=== PATIENT | female | born 1940 | race Caucasian/White ===

== ENCOUNTER 2018-01-05 09:34 | Inpatient (IN) | payer OTHER ==
[2018-01-03 09:28] VITALS: BMI 37.1
[2018-01-05] MEDS ORDERED: TRANEXAMIC ACID 1000 MG/10 ML VIAL ONE ×2 (11:18→15:13)
[2018-01-05] MEDS ORDERED: DEXAMETHASONE SOD PHOSPHATE 4 MG/1 ML VIAL ONE (11:18)
[2018-01-05] MEDS ORDERED: VANCOMYCIN 1,000 MG VIAL (RESTRICTED TO ID ONLY) ONE (11:18)
[2018-01-05] MEDS ORDERED: ceFAZolin SODIUM 1 GM VIAL ONE ×2 (11:18→15:12)
[2018-01-05] MEDS ORDERED: ONDANSETRON 4 MG/2 ML VIAL ONE (11:18)
[2018-01-05] MEDS ORDERED: BUPIVACAINE LIPOSOME/PF (EXPAREL) 266 MG/20 ML VIAL ONE (12:08)
[2018-01-05] MEDS ORDERED: MIDAZOLAM HCL 2 MG/2 ML SINGLE DOSE VIAL ONE ×2 (12:08→13:04)
[2018-01-05] MEDS ORDERED: VANCOMYCIN 1,000 MG in DEXTROSE 5%-WATER - 250 ML IVPB ONE (12:32)
[2018-01-05] MEDS ORDERED: TRANEXAMIC ACID 1000 MG/10 ML VIAL IVPUSH ONE (12:32)
[2018-01-05] MEDS ORDERED: CEFAZOLIN 2 GM in DEXTROSE 5%-WATER - 50 ML IVPB ONE (12:32)
[2018-01-05] MEDS ORDERED: ONDANSETRON 4 MG/2 ML VIAL IVPUSH PRN ×2 (14:29→15:13)
[2018-01-05] MEDS ORDERED: ACETAMINOPHEN 325 MG TABLET (FP) PO SCH (14:30)
[2018-01-05] MEDS ORDERED: oxyCODONE HCL 5 MG TABLET PO PRN (14:30)
[2018-01-05] MEDS ORDERED: BENZOIN/ALOE VERA/STORAX/TOLU 58 ML BOTTLE ONE (14:55)
[2018-01-05] MEDS ORDERED: MAG HYDROX/AL HYDROX/SIMETH 30 ML UNIT-DOSE CUP PO PRN (15:13)
[2018-01-05] MEDS ORDERED: MAGNESIUM HYDROX 2400MG/30ML ORAL SUSPENSION 30 ML CUP PO PRN (15:13)
[2018-01-05] MEDS ORDERED: LACTATED RINGERS SOLUTION 1,000 ML IV SCH (15:15)
--- NOTE | 2018-01-05 15:18 | PN ---
Progress Note (short form) - Note Progress Note: 77F s/p right total knee replacement POD #0. -Pain control. -DVT PPx: -Chemical: ASA 325mg PO BID x 6 weeks. -Mechanical: MARGARETH's, SCD's. -Incentive spirometry. -PT/OT/Rehab, OOB. -WBAT RLE. -Antibiotics: Ancef x 2 post op doses. -f/u post-op trial of void. -Diet as tolerated. -Keep dressing clean & dry. -Care per medical hospitalist team. -f/u [facility] [place] office 01/13/2018; call for appointment; . -Will follow. Fortino Tran MD (Orthopaedic Surgery).
--- NOTE | 2018-01-05 15:22 | OP ---
Operative Note - Note: Operative Date: 01/05/18 Pre-Operative Diagnosis: Right knee DJD Operation: Right total knee replacement Implants: Cristal Triathlon. Femur - 5. Tibia - 6. Poly - 9mm, TS. Patella - 27mm, symmetric Post-Operative Diagnosis: Same as Pre-op Surgeon: Fortino Tran Mammographer: Siddhartha Tran Anesthesiologist/DEMOLITION SPECIALIST: Veda Choudhary Anesthesia: Spinal Specimens Removed: Bone, soft tissue Estimated Blood Loss (mls): 0 Drains & Tubes with Location: 1 x deep HemoVac drain Fluid Volume Replaced (mls): 800 Operative Report Dictated: Yes
[2018-01-05] MEDS ORDERED: ACETAMINOPHEN 325 MG TABLET (FP) ONE (15:50)
[2018-01-05] MEDS ORDERED: oxyCODONE HCL 5 MG TABLET ONE (16:38)
[2018-01-05] MEDS ORDERED: oxyCODONE HCL 5 MG TABLET PO ONE (16:40)
[2018-01-05] MEDS ORDERED: CEFAZOLIN 2 GM/D5W 2 GM/50 ML ML IVPB SCH (18:00)
[2018-01-05] MEDS: oxyCODONE HCL 5 MG TABLET PO PRN (19:30)
[2018-01-05] MEDS: ASPIRIN 325 MG TABLET PO SCH (21:37)
[2018-01-05] MEDS: SENNOSIDES/DOCUSATE COMBO (SENNA PLUS) TABLET (UD) PO SCH (21:37)
[2018-01-05] MEDS: oxyCODONE HCL 10 MG SUSTAINED ACTING TABLET PO SCH (21:37)
[2018-01-05] MEDS: ACETAMINOPHEN 325 MG TABLET (FP) PO SCH (21:37)
[2018-01-05] MEDS: ZINC OXIDE 20% TOPICAL OINTMENT 30 GM TUBE TP SCH (21:38)
[2018-01-05] MEDS: CEFAZOLIN 2 GM/D5W 2 GM/50 ML ML IVPB SCH (21:38)
[2018-01-06] MEDS: oxyCODONE HCL 5 MG TABLET PO PRN ×3 (02:42→16:51)
[2018-01-06] MEDS: ACETAMINOPHEN 325 MG TABLET (FP) PO SCH ×4 (04:00→21:17)
[2018-01-06] MEDS: CEFAZOLIN 2 GM/D5W 2 GM/50 ML ML IVPB SCH (06:37)
--- NOTE | 2018-01-06 07:52 | CONSULT ---
Consultation: REQUESTING PROVIDER: Dr fonseca CONSULT REQUEST: We have been asked to medically evaluate this patient for medical management. HISTORY OF PRESENT ILLNESS: patient is a 77-year-old obese female, with a past medical history of osteoarthritis and hypertension, patient is s/p right total knee replacement, 01/05/2018 spinal anesthesia, Dr. Fonseca. REVIEW OF SYSTEMS: CONSTITUTIONAL: Absent: fever, chills, diaphoresis, generalized weakness, malaise, loss of appetite, weight change HEENT: Absent: rhinorrhea, nasal congestion, throat pain, throat swelling, difficulty swallowing, mouth swelling, ear pain, eye pain, visual changes CARDIOVASCULAR: Absent: chest pain, syncope, palpitations, irregular heart rate, lightheadedness , peripheral edema RESPIRATORY: Absent: cough, shortness of breath, dyspnea with exertion, orthopnea, wheezing, stridor, hemoptysis GASTROINTESTINAL: Absent: abdominal pain, abdominal distension, nausea, vomiting, diarrhea, constipation, melena, hematochezia GENITOURINARY: Absent: dysuria, frequency, urgency, hesitancy, hematuria, flank pain, genital pain MUSCULOSKELETAL: present: right knee pain Absent: myalgia, arthralgia, joint swelling, back pain, neck pain SKIN: Absent: rash, itching, pallor HEMATOLOGIC/IMMUNOLOGIC: Absent: easy bleeding, easy bruising, lymphadenopathy, frequent infections ENDOCRINE: Absent: unexplained weight gain, unexplained weight loss, heat intolerance, cold intolerance NEUROLOGIC: Absent: headache, focal weakness or paresthesias, dizziness, unsteady gait, seizure, mental status changes, bladder or bowel incontinence PSYCHIATRIC: Absent: anxiety, depression, suicidal or homicidal ideation, hallucinations. PHYSICAL EXAMINATION Vital Signs - 24 hr 01/05/18 01/05/18 01/05/18 10:04 10:15 10:19 Temperature 97.7 F 97.7 F Pulse Rate 65 65 Respiratory 20 20 Rate Blood Pressure 149/70 149/70 O2 Sat by Pulse 97 Oximetry (%) 01/05/18 01/05/18 01/05/18 11:27 15:35 15:40 Temperature 97.6 F Pulse Rate 55 L 54 L Respiratory 20 18 16 Rate Blood Pressure 106/57 105/83 O2 Sat by Pulse 97 97 96 Oximetry (%) 01/05/18 01/05/18 01/05/18 15:45 15:50 16:10 Temperature Pulse Rate 55 L 53 L 55 L Respiratory 16 14 15 Rate Blood Pressure 108/56 114/56 115/53 O2 Sat by Pulse 99 100 100 Oximetry (%) 01/05/18 01/05/18 01/05/18 16:25 16:35 16:55 Temperature Pulse Rate 56 L 55 L 54 L Respiratory 15 18 18 Rate Blood Pressure 106/53 113/45 101/48 O2 Sat by Pulse 100 99 98 Oximetry (%) 01/05/18 01/05/18 01/05/18 17:10 17:30 17:50 Temperature 97.6 F 97.6 F Pulse Rate 58 L 55 L 55 L Respiratory 18 19 19 Rate Blood Pressure 108/64 110/56 114/58 O2 Sat by Pulse 99 Oximetry (%) 01/05/18 01/05/18 01/06/18 21:00 21:45 06:14 Temperature 97.9 F 98.3 F Pulse Rate 82 90 Respiratory 19 19 20 Rate Blood Pressure 116/65 124/65 O2 Sat by Pulse 94 L 95 Oximetry (%) GENERAL: Awake, alert, and fully oriented, in no acute distress. HEAD: Normal with no signs of trauma. EYES: Pupils equal, round and reactive to light, extraocular movements intact, sclera anicteric, conjunctiva clear. No lid lag. EARS, NOSE, THROAT: Ears normal, nares patent, oropharynx clear without exudates. Moist mucous membranes. NECK: Normal range of motion, supple without lymphadenopathy, JVD, or masses. LUNGS: Breath sounds equal, clear to auscultation bilaterally. No wheezes, and no crackles. No accessory muscle use. HEART: Regular rate and rhythm, normal S1 and S2 without murmur, rub or gallop. ABDOMEN: Soft, nontender, not distended, normoactive bowel sounds, no guarding, no rebound, no masses. No hepatomegaly or splenomegaly. MUSCULOSKELETAL: Normal range of motion at all joints. No bony deformities or tenderness. No CVA tenderness. UPPER EXTREMITIES: 2+ pulses, warm, well-perfused. No cyanosis. No clubbing. Cap refill <2 seconds. No peripheral edema. LOWER EXTREMITIES: 2+ pulses, warm, well-perfused. No calf tenderness. No peripheral edema. RIGHT LOWER EXTREMITY: SCDs/Payam, dressing CDI, Hemovac drain noted sanguinous scant drainage noted, less than 3 second capillary refill, +3 pedal pulse NEUROLOGICAL: Cranial nerves II-XII intact. Normal speech. Normal gait. PSYCHIATRIC: Cooperative. Good eye contact. Appropriate mood and affect. SKIN: Warm, dry, normal turgor, no rashes or lesions noted. Active Medications Generic Name Dose Route Start Last Admin Trade Name Freq PRN Reason Stop Dose Admin Acetaminophen 650 mg 01/05/18 22:00 01/06/18 04:00 Tylenol - PO 650 mg Q6H BHAVIN Administration Al Hydroxide/Mg Hydroxide 30 ml 01/05/18 15:13 Mylanta Oral Suspension - PO Q4H PRN DYSPEPSIA Aspirin 325 mg 01/05/18 22:00 01/05/18 21:37 Asa - PO 325 mg BID [facility] Administration Celecoxib 200 mg 01/06/18 10:00 Celebrex - PO DAILY [facility] Hydrochlorothiazide 12.5 mg 01/06/18 10:00 Hctz - PO DAILY [facility] Lactated Ringer's 1,000 mls @ 125 mls/hr 01/05/18 14:30 Lactated Ringers Solution IV ASDIR BHAVIN Magnesium Hydroxide 30 ml 01/05/18 15:13 Milk Of Magnesia - PO PRN PRN CONSTIPATION Multi-Ingredient Ointment 1 applic 01/05/18 22:00 01/05/18 21:38 Zinc Oxide TP 1 applic BID [facility] Administration Multivitamins/Minerals/Vitamin C 1 tab 01/06/18 10:00 Tab-A-Vit - PO DAILY [facility] Ondansetron HCl 4 mg 01/05/18 15:13 Zofran Injection IVPUSH Q6H PRN NAUSEA Oxycodone HCl 5 mg 01/05/18 14:30 Roxicodone - PO Q3H PRN PAIN LEVEL 1-5 Oxycodone HCl 10 mg 01/05/18 14:30 01/06/18 05:45 Roxicodone - PO 10 mg Q3H PRN Administration PAIN LEVEL 6-10 Oxycodone HCl 10 mg 01/05/18 22:00 01/05/18 21:37 Oxycontin - PO 01/08/18 14:30 10 mg BID [facility]AVIN Administration Pantoprazole Sodium 40 mg 01/06/18 10:00 Protonix - PO DAILY [facility] Senna/Docusate Sodium 2 tablet 01/05/18 22:00 01/05/18 21:37 Pericolace - PO 2 tablet BID [facility] Administration Solifenacin 10 mg 01/06/18 10:00 Vesicare - PO DAILY [facility]AV[facility] ASSESSMENT/PLAN: 1) MS S/P right total knee replacement - When necessary pain medication - Physical therapy as per the orthopedist - Monitor hemoglobin repeat hemoglobin this morning 10.1 stable 2) cardiovascular hypertension - continue hydrochlorothiazide blood pressure at goal Dispo: We will continue to follow the patient. Thank you for this consultative opportunity. .
--- NOTE | 2018-01-06 08:48 | OP ---
DATE OF OPERATION: 01/05/2018 SURGEON: Fortino Tran M.D. EYE SURGEON: Siddhartha Tran M.D., Jace Stewart PREOPERATIVE DIAGNOSIS: Severe fixed valgus, fixed flexed tricompartmental osteoarthritis, right knee. POSTOPERATIVE DIAGNOSIS: Severe fixed valgus, fixed flexed tricompartmental osteoarthritis, right knee. OPERATION PERFORMED: 1. A right posterior stabilized total knee arthroplasty ([employer]). 2. Lateral release. ANESTHESIA: Spinal epidural with a peripheral block. OPERATION DETAILS: The patient was correctly identified and brought into the operating room. A timeout was called. Imaging was available for intraoperative evaluation. A midline incision was utilized. The quadriceps tendon was incised longitudinally. A medial parapatellar incision was made to the medial aspect of the tibial tubercle. This brought about easy capsulation of the patella after manipulating it carefully, appropriately. A severely marked degree of osteoarthritis was encountered. The patella was cut free handed from patella to quadriceps tendon. The patellar jig measured size 27 and the lugholes drilled appropriately. After extensive medial as well as lateral dissection around the top of the proximal end of the tibia, with external rotation, the tibia was subluxed forward. The tibial cut was made with extramedullary alignment about a centimeter below the actual joint line, so severe was the abnormality of the tibia. The tibial baseplate measured size 6. The femoral bone bed itself was prepared with the appropriate jig system from [employer]. This was a Triathlon posterior stabilized size 5 femoral component which was, after the bone cut, seated accurately onto the distal end of the femur. The tibial component was a size 6 baseplate with a 12 x 50 stem. On trialing, ultimately utilized was a 6- x 9-mm TS polyethylene. An extensive synovectomy was performed throughout this because of the marked degree of synovitis. The three cuts, after having been made with the appropriate jig system, brought the knee into anatomical alignment. The joint line was proximalized about 2 mm. The flexion and extension gaps were even and equal. The menisci were resected. The tibial preparation was cut to 90 degrees to the actual tibial medullary alignment. The femur was cut to 4 degrees of valgus, 3 degrees of external rotation, and the joint line was proximalized by 2 mm. Trialing brought about excellent realignment and this was accepted. Once all bone cuts had been made and the trialing components, we were satisfied with the alignment of them and full extension achieved, and stability in both flexion and extension, the cementing of all components was in one stage. Once again, a size 5 Triathlon posterior stabilized femoral component and a size 6 universal baseplate with a 12 x 50 stem cemented into position using appropriate vacuum-mixed cement and removing all extraneous cement once it had been seated. The patella was cemented in position as well. On the table, the limb previously aligned into an anatomic position from severe valgus, the fixed flexion deformity was dispensed with, and the knee brought into full extension. The flexion was limited by the thickness of the soft issues blocking the calf from sweeping through this because of the thickness and largeness of the thigh tissue. In order to achieve greater patellar tracking after lateral release and an extensive synovectomy performed throughout once the bone cuts and cementing of the components had been inserted , this to ensure that there was no remaining diseased tissue. Closure: fascia 1 Vicryl, subcutaneous 1 and 2-0 Vicryl, skin kaylen, with nylon sutures proximally and distally on the skin wound itself. Overall comment: This was an extremely difficult and severely deformed knee with severe osteoarthritis. Operation went well. The contralateral knee will be done in about 2-3 months. MD RO Huggins/[id number] MTDD
[2018-01-06 08:53] LABS: ANION GAP 8 (8-16); BLOOD UREA NITROGEN 14 mg/dl (7-18); CALCIUM 8.4 mg/dl (8.4-10.2); CHLORIDE 101 mmol/L (98-107); CO2 26 mmol/L (22-28); CREATININE 0.6 mg/dl (0.6-1.3); GLUCOSE,RANDOM 112 mg/dl (74-106); POTASSIUM 4.1 mmol/L (3.5-5.1); SODIUM 135 mmol/L (136-145)
[2018-01-06] MEDS: HYDROCHLOROTHIAZIDE 12.5 MG CAPSULE (FP) PO SCH (09:13)
[2018-01-06] MEDS: CELECOXIB 200 MG CAPSULE PO SCH (09:13)
[2018-01-06] MEDS: PANTOPRAZOLE 40 MG TABLET (FP) PO SCH (09:13)
[2018-01-06] MEDS: ASPIRIN 325 MG TABLET PO SCH ×2 (09:13→21:18)
[2018-01-06] MEDS: SENNOSIDES/DOCUSATE COMBO (SENNA PLUS) TABLET (UD) PO SCH ×2 (09:14→21:18)
[2018-01-06] MEDS: MULTIVITAMINS (DAILY MVI) TABLET (FP) PO SCH (09:14)
[2018-01-06] MEDS: SOLIFENACIN SUCCINATE 5 MG TAB (FP) PO SCH (09:14)
[2018-01-06] MEDS: oxyCODONE HCL 10 MG SUSTAINED ACTING TABLET PO SCH ×2 (09:15→21:28)
[2018-01-06] MEDS: ZINC OXIDE 20% TOPICAL OINTMENT 30 GM TUBE TP SCH ×2 (09:18→22:24)
[2018-01-06 09:45] LABS: MEAN PLT VOLUME 9.1 fl (7.5-11.1); WHITE BLOOD COUNT 9.1 K/mm3 (4.0-10.0)
[2018-01-06 09:48] LABS: HEMOGLOBIN 10.1 GM/dL (10.7-15.3); MCH 20.7 pg (25.7-33.7); MCHC 32.5 g/dl (32.0-36.0); MEAN CELL VOLUME 63.7 fl (80-96); PLATELET COUNT 249 K/MM3 (134-434); RBC 4.86 M/mm3 (3.60-5.2); RDW 15.3 % (11.6-15.6)
--- NOTE | 2018-01-06 15:07 | PN ---
Progress Note (short form) - Note Progress Note: 77F POD1 s/p R TKR under spinal anesthetic with peripheral nerve blocks. Pt states that pain is well controlled and reports no anesthetic complications. AVSS. Motor and sensory function intact in bilateral lower extremities. Continue current regimen.
[2018-01-06] MEDS: LACTATED RINGERS SOLUTION 1,000 ML IV SCH (15:42)
[2018-01-07] MEDS: ACETAMINOPHEN 325 MG TABLET (FP) PO SCH ×2 (05:01→10:43)
[2018-01-07 08:32] LABS: HEMATOCRIT 31.4 % (32.4-45.2); HEMOGLOBIN 9.5 GM/dl (10.7-15.3); MCH 20.4 pg (25.7-33.7); MCHC 30.3 g/dl (32.0-36.0); MEAN CELL VOLUME 67.3 fl (80-96); MEAN PLT VOLUME 9.1 fl (7.5-11.1); PLATELET COUNT 259 K/MM3 (134-434); RBC 4.66 M/mm3 (3.60-5.2); RDW 14.6 % (11.6-15.6); WHITE BLOOD COUNT 10.9 K/mm3 (4.0-10.8)
[2018-01-07] MEDS ORDERED: PT OWN MED DRAWER 7, Y5N ONE (10:32)
[2018-01-07] MEDS: ASPIRIN 325 MG TABLET PO SCH (10:42)
[2018-01-07] MEDS: SENNOSIDES/DOCUSATE COMBO (SENNA PLUS) TABLET (UD) PO SCH (10:43)
[2018-01-07] MEDS: MULTIVITAMINS (DAILY MVI) TABLET (FP) PO SCH (10:43)
[2018-01-07] MEDS: SOLIFENACIN SUCCINATE 5 MG TAB (FP) PO SCH (10:44)
[2018-01-07] MEDS: PANTOPRAZOLE 40 MG TABLET (FP) PO SCH (10:44)
[2018-01-07] MEDS: CELECOXIB 200 MG CAPSULE PO SCH (10:44)
[2018-01-07] MEDS: HYDROCHLOROTHIAZIDE 12.5 MG CAPSULE (FP) PO SCH (10:44)
[2018-01-07] MEDS: oxyCODONE HCL 10 MG SUSTAINED ACTING TABLET PO SCH (10:44)
[2018-01-07] MEDS: ZINC OXIDE 20% TOPICAL OINTMENT 30 GM TUBE TP SCH (10:45)
--- NOTE | 2018-01-07 13:02 | PATH ---
Surgical Pathology Report Patient Name: MARSHA VALDES Med. Rec. #: [id number] /Age/Gender: 1940 (Age: 77) / F Account: [id number] [facility] Taken: 01/05/2018 Received: 01/05/2018 Reported: 01/07/2018 Physicians: Fortino Tran M.D. Specimen(s) Received BONE RIGHT KNEE Clinical History Right knee osteoarthritis Final Diagnosis KNEE BONE, RIGHT, TOTAL KNEE REPLACEMENT: DEGENERATIVE JOINT DISEASE. Electronically Signed Veronica Adair M.D. Gross Description Received in formalin labeled "bone right knee," is a 12.5 x 11.5 x 2.8 cm aggregate of new portions of bone and soft tissue. The tibial plateau measures 8.3 x 6.7 x 1.6 cm. There are multiple areas of eburnation present, measuring up to 3.1 cm in greatest dimension. The remaining articular surfaces are new-yellow and diffusely nodular and granular. The underlying trabecular bone is yellow and hard. Workers' Compensation Mediator sections are submitted in one cassette, following decalcification. 01/06/2018 saudi01/06/2018
[2018-01-07 14:09] VITALS: BP 99/54; PULSE 83; TEMP 98.8
== END 2018-01-07 14:30 | DRG 470 ==
LOC: FM/S 09:34
PROVIDERS: ADMIT Orthopaedic Surgery Orthopaedic Surgery of the Spine; ATTEND Orthopaedic Surgery Orthopaedic Surgery of the Spine
PROC: 0SRC0J9 Replacement of Right Knee Joint with Synthetic Substitute, Cemented, Open Approach (ICD-10-PCS; principal; 2018-01-05 13:35)
DX: M17.11 Unilateral primary osteoarthritis, right knee (principal); I10 Essential (primary) hypertension; D64.9 Anemia, unspecified; K21.9 Gastro-esophageal reflux disease without esophagitis; I73.9 Peripheral vascular disease, unspecified
CPT/HCPCS: 36415; 73560-TC-RT-FY; 80048; 85027; 88304-TC; 88311-TC; 94760; 97116-GP; 97162-GP

== ENCOUNTER 2018-05-04 06:39 | Inpatient (IN) | payer OTHER ==
[2018-04-18 13:26] VITALS: BMI 34.8
[2018-05-04] MEDS ORDERED: CEFAZOLIN 2 GM in DEXTROSE 5%-WATER - 50 ML IVPB ONE (06:58)
[2018-05-04] MEDS ORDERED: VANCOMYCIN 1,500 MG in DEXTROSE 5%-WATER - 250 ML IVPB ONE (06:58)
[2018-05-04] MEDS ORDERED: ceFAZolin SODIUM 1 GM VIAL ONE ×2 (07:14→10:48)
[2018-05-04] MEDS ORDERED: TRANEXAMIC ACID 1000 MG/10 ML VIAL ONE (07:14)
[2018-05-04] MEDS ORDERED: PROPOFOL 20 ML ONE (07:14)
[2018-05-04] MEDS ORDERED: ONDANSETRON 4 MG/2 ML VIAL ONE (07:14)
[2018-05-04] MEDS ORDERED: DEXAMETHASONE SOD PHOSPHATE 4 MG/1 ML VIAL ONE (07:14)
[2018-05-04] MEDS ORDERED: VANCOMYCIN 1,000 MG VIAL (RESTRICTED TO ID ONLY) ONE (07:14)
[2018-05-04] MEDS ORDERED: MIDAZOLAM HCL 2 MG/2 ML SINGLE DOSE VIAL ONE (07:35)
[2018-05-04] MEDS ORDERED: BUPIVACAINE LIPOSOME/PF (EXPAREL) 266 MG/20 ML VIAL ONE (07:35)
[2018-05-04] MEDS ORDERED: MAG HYDROX/AL HYDROX/SIMETH -MYLANTA- ORAL SUSPENSION PO PRN (10:15)
[2018-05-04] MEDS ORDERED: ONDANSETRON 4 MG/2 ML VIAL IVPUSH PRN (10:16)
[2018-05-04] MEDS ORDERED: MAG HYDROX/AL HYDROX/SIMETH 30 ML UNIT-DOSE CUP PO PRN (10:16)
[2018-05-04] MEDS ORDERED: MAGNESIUM HYDROX 2400MG/30ML ORAL SUSPENSION 30 ML CUP PO PRN (10:16)
--- NOTE | 2018-05-04 10:23 | PN ---
Progress Note (short form) - Note Progress Note: 78F s/p LEFT total knee replacement POD #0. -Pain control. -DVT PPx: -Chemical: ASA 81mg PO BID x 6 weeks. -Mechanical: MARGARETH's, SCD's. -Incentive spirometry q15 min. -PT/OT/Rehab, OOB. -WBAT LLE. -Antibiotics: Ancef x 2 post op doses. -f/u post-op trial of void. -Diet as tolerated. -Keep dressing clean & dry. -Care per medical hospitalist team. -f/u [facility] [place] office 05/13/2018; call for appointment; . -Will follow. Fortino Tran MD (Orthopaedic Surgery).
--- NOTE | 2018-05-04 10:25 | OP ---
Operative Note - Note: Operative Date: 05/04/18 Pre-Operative Diagnosis: Left knee DJD Operation: Left TKA Implants: Cristal Triathlon. Femur - 4. Tibia - 5. Poly - 9mm, TS. Patella - 27mm, symmetric Surgeon: Fortino Tran Inside Barrel Polisher: Siddhartha Tran Anesthesiologist/CAKE INSPECTOR: Veda Choudhary Anesthesia: Spinal Specimens Removed: Bone, soft tissue Estimated Blood Loss (mls): 0 Drains & Tubes with Location: 1 x deep HemoVac Fluid Volume Replaced (mls): 1,000 Operative Report Dictated: Yes
[2018-05-04] MEDS ORDERED: LACTATED RINGERS SOLUTION 1,000 ML IV SCH ×2 (10:30→12:30)
--- NOTE | 2018-05-04 12:17 | CONSULT ---
Consultation: REQUESTING PROVIDER: Dr. Fortino Tran CONSULT REQUEST: We have been asked to medically evaluate this patient post- operatively. HISTORY OF PRESENT ILLNESS: 78 year-old female with a PMH significant for HTN, osteoarthritis, and s/p right TKR (01/05/18). Patient underwent LEFT TKR earlier today with Dr. Fortino Tran. REVIEW OF SYSTEMS: CONSTITUTIONAL: Absent: fever, chills, diaphoresis, generalized weakness, malaise, loss of appetite, weight change HEENT: Absent: rhinorrhea, nasal congestion, throat pain, throat swelling, difficulty swallowing, mouth swelling, ear pain, eye pain, visual changes CARDIOVASCULAR: Absent: chest pain, syncope, palpitations, irregular heart rate, lightheadedness , peripheral edema RESPIRATORY: Absent: cough, shortness of breath, dyspnea with exertion, orthopnea, wheezing, stridor, hemoptysis GASTROINTESTINAL: +mild lower abdominal pain Absent: abdominal pain, abdominal distension, nausea, vomiting, diarrhea, constipation, melena, hematochezia GENITOURINARY: Absent: dysuria, frequency, urgency, hesitancy, hematuria, flank pain, genital pain MUSCULOSKELETAL: Absent: myalgia, arthralgia, joint swelling, back pain, neck pain SKIN: Absent: rash, itching, pallor HEMATOLOGIC/IMMUNOLOGIC: Absent: easy bleeding, easy bruising, lymphadenopathy, frequent infections ENDOCRINE: Absent: unexplained weight gain, unexplained weight loss, heat intolerance, cold intolerance NEUROLOGIC: Absent: headache, focal weakness or paresthesias, dizziness, unsteady gait, seizure, mental status changes, bladder or bowel incontinence PSYCHIATRIC: Absent: anxiety, depression, suicidal or homicidal ideation, hallucinations. PHYSICAL EXAMINATION Vital Signs - 24 hr 05/04/18 05/04/18 05/04/18 07:11 07:34 11:22 Temperature 97.8 F 97.7 F Pulse Rate 62 66 Respiratory 18 14 Rate Blood Pressure 143/60 143/45 L O2 Sat by Pulse 98 98 Oximetry (%) GENERAL: Awake, alert, and fully oriented, in no acute distress. HEAD: Normal with no signs of trauma. EYES: Pupils equal, round and reactive to light, sclera anicteric, conjunctiva clear. No lid lag. LUNGS: Breath sounds equal, clear to auscultation bilaterally. No wheezes, and no crackles. No accessory muscle use. HEART: Regular rate and rhythm, S1 and S2 ABDOMEN: Soft, nontender, not distended UPPER EXTREMITIES: 2+ pulses, warm, well-perfused. No cyanosis. No clubbing. Cap refill <2 seconds. No peripheral edema. LOWER EXTREMITIES: Bilateral TEDs, SCDs; surgical dressing c/d/i NEUROLOGICAL: Cranial nerves II-XII intact. Normal speech. Normal gait. PSYCHIATRIC: Cooperative. Good eye contact. Appropriate mood and affect. SKIN: Warm, dry, normal turgor, no rashes or lesions noted. Active Medications Generic Name Dose Route Start Last Admin Trade Name Freq PRN Reason Stop Dose Admin Al Hydroxide/Mg Hydroxide 30 ml 05/04/18 10:16 Mylanta Oral Suspension - PO Q4H PRN DYSPEPSIA Aspirin 81 mg 05/04/18 22:00 Asa - PO BID [facility] Famotidine 20 mg 05/05/18 10:00 Pepcid - PO DAILY [facility] Ferrous Sulfate 325 mg 05/05/18 10:00 Feosol - PO DAILY [facility] Hydrochlorothiazide 12.5 mg 05/05/18 10:00 Hctz - PO DAILY [facility] Cefazolin Sodium/Dextrose 2 gm in 50 mls @ 100 mls/hr 05/04/18 18:00 Ancef 2 Gm Premixed Ivpb - IVPB 05/05/18 02:29 Q8H-IV [facility] Lactated Ringer's 1,000 mls @ 100 mls/hr 05/04/18 10:30 Lactated Ringers Solution IV 05/05/18 06:00 ASDIR BHAVIN Magnesium Hydroxide 30 ml 05/04/18 10:16 Milk Of Magnesia - PO PRN PRN CONSTIPATION Non-Formulary Medication 15 mg 05/05/18 10:00 Oxybutynin Chloride [Ditropan Xl] PO DAILY [facility] Ondansetron HCl 4 mg 05/04/18 10:16 Zofran Injection IVPUSH Q6H PRN NAUSEA Pantoprazole Sodium 40 mg 05/05/18 10:00 Protonix - PO DAILY [facility] Senna/Docusate Sodium 2 tablet 05/04/18 22:00 Pericolace - PO BID [facility] ASSESSMENT/PLAN: 78 year-old female with a PMH significant for HTN, osteoarthritis, and s/p right TKR (01/05/18). Patient underwent LEFT TKR earlier today with Dr. Fortino Tran. Degenerative joint disease s/p LEFT TKR --POD #0 --pain management per surgical team --perioperative antibiotics --ASA 81mg BID --protonix --incentive spirometer --physical therapy Hypertension --hold HCTZ while on IV fluids Mild abdominal pain --feels like gas --simethicone Dispo: We will continue to follow the patient. Thank you for this consultative opportunity. Visit type - Emergency Visit Emergency Visit: No - New Patient This patient is new to me today: Yes Date on this admission: 05/04/18 - Critical Care Critical Care patient: No
[2018-05-04] MEDS ORDERED: oxyCODONE HCL 5 MG TABLET PO PRN (12:24)
[2018-05-04] MEDS ORDERED: DOCUSATE SODIUM 100 MG CAPSULE (FP) PO SCH (12:45)
[2018-05-04] MEDS ORDERED: SENNOSIDES 8.6MG TABLET (FP) PO SCH (12:45)
--- NOTE | 2018-05-04 12:46 | OP ---
DATE OF OPERATION: 05/04/2018 SURGEON: Fortino Tran MD GASOLINE CATALYST OPERATOR: Siddhartha Tran MD, CHRISTIAN Cabello PREOPERATIVE DIAGNOSIS: Severe tricompartmental osteoarthritis, left knee, with fixed valgus 10 degrees and 45-degree fixed flexed deformity. POSTOPERATIVE DIAGNOSIS: Severe tricompartmental osteoarthritis, left knee, with fixed valgus 10 degrees and 45-degree fixed flexed deformity. OPERATION PERFORMED: Left posterior stabilized total knee arthroplasty. ANESTHESIA: Spinal anesthesia with peripheral block and conscious sedation. ANTIBIOTICS GIVEN: Kefzol 2 g, vancomycin 1 g preoperative. Kefzol 1 g given at the end of the procedure at the time of release of the tourniquet. TOURNIQUET TIME: 115 minutes. OPERATION IN DETAIL: The patient was correctly identified and brought in the operating room. The left lower extremity was prepped, free draped in the routine manner with Betadine scrub solution, wiped with alcohol, and DuraPrep was applied. Midline incision utilized. This is an extremely difficult knee because of deformity and the obesity. The obesity was regional obesity involving the thighs at the legs where an inverted champagne bottle from chronic phlebitic changes in the leg. The midline incision was long enough to prevent any V to U configuration. We kept a V at the edges of the wound throughout the procedure. The incision was made through the skin through the fat layer to the quadriceps mechanism. The quadriceps mechanism was split longitudinally, just biased medially. An angular incision made into the actual quadriceps tendon, and this coursed around the medial parapatellar margin to the medial aspect of the tibial tubercle. The soft tissue off the proximal tibia was released using sharp dissection. The knee was dislocated. Severe tricompartmental osteoarthritis encountered. Patellar cut was made first from patellar ligament to quadriceps tendon, utilizing Whitesides line, and a 27-mm jig was applied, and the lug holes drilled appropriately. The patella was capsized. Tibia was subluxed anteriorly with external rotation of the leg to protect the quadriceps mechanism. The menisci were removed with sharp dissection appropriately. The extramedullary jig alignment device was placed. The tibial bone cut was just below the jarred of the lateral tibial plateau. The tibia was cut in neutral. The femur was cut to 3 degrees of external rotation. Plus 2 mm of femur were resected to proximalize the joint line. The femur itself was then sized to size 4, and the tibia itself concomitantly measured size 5. The jigs were utilized to perform the bony cuts. All bony cuts including the box for the posterior stabilized component of the femoral component was cut without any complications. A full debridement of the soft tissue and synovium was then performed. Spacer block was placed at 9 mm, the flexion gap extension gaps were even. The mechanical axis was restored. The cut was made in 4 degrees of varus. The proximilization of the joint line by 2 mm enabled enough surface of the lateral femoral condyle to be available for cementation. The trialing revealed excellent alignment and positioning. Stability was excellent. Once all bony cuts were made, trialing components revealed full range of movement with normal patellar tracking. The definitive prosthesis was then inserted. First, the bone bed was washed thoroughly with pulse lavage, dried, and cementing in one stage patella, femur, and tibia. This then was reduced into position with a 9-mm polyethylene spacer, and the extraneous cement was all removed. The wounds were then thoroughly lavaged and definitive PS size 9 polyethylene was inserted, reduced back into position giving excellent realignment into the mechanical axis and full range of movement with no patellar tracking abnormalities noted. Closure as well as quadriceps tendon and fascia 1 Vicryl, subcutaneous 1 and 2-0 Vicryl, skin 3-0 Monocryl with Steri-Strips. Drainage 1/8-inch Hemovac x1. OPERATION COMMENT: Difficult procedure. No complications. MD RO Huggins/[id number] MTDD
[2018-05-04] MEDS: ACETAMINOPHEN 325 MG TABLET (FP) PO SCH ×2 (14:00→21:24)
--- NOTE | 2018-05-04 14:16 | HP ---
CHIEF COMPLAINT: PCP: HISTORY OF PRESENT ILLNESS: ER course was notable for: (1) (2) (3) Recent Travel: PAST MEDICAL HISTORY: PAST SURGICAL HISTORY: Social History: Smoking: Alcohol: Drugs: Family History: Allergies No Known Allergies Allergy (Verified 04/18/18 13:11) HOME MEDICATIONS: Home Medications Medication Instructions Recorded Acetaminophen [Tylenol] 650 mg PO Q6H PRN 01/03/18 Docusate Sodium [Colace] 200 mg PO DAILY 01/03/18 Famotidine [Pepcid -] 20 mg PO DAILY 01/03/18 Mag Hydrox/Al Hydrox/Simeth 30 ml PO Q6H PRN 01/03/18 [MAALOX *SUSPENSION* -] Multivitamin [Multiple Vitamins] 1 each PO DAILY 01/03/18 Oxybutynin Chloride [Ditropan Xl] 15 mg PO DAILY 01/03/18 Oxycodone HCl 5 mg PO Q12H PRN 01/03/18 Sennosides [Senna] 8.6 mg PO DAILY 01/03/18 Hydrochlorothiazide [Hctz -] 12.5 mg PO DAILY 01/05/18 Aspirin [ASA -] 81 mg PO DAILY 04/18/18 Ferrous Sulfate [Iron] 325 mg PO DAILY 04/18/18 REVIEW OF SYSTEMS CONSTITUTIONAL: Absent: fever, chills, diaphoresis, generalized weakness, malaise, loss of appetite, weight change HEENT: Absent: rhinorrhea, nasal congestion, throat pain, throat swelling, difficulty swallowing, mouth swelling, ear pain, eye pain, visual changes CARDIOVASCULAR: Absent: chest pain, syncope, palpitations, irregular heart rate, lightheadedness , peripheral edema RESPIRATORY: Absent: cough, shortness of breath, dyspnea with exertion, orthopnea, wheezing, stridor, hemoptysis GASTROINTESTINAL: Absent: abdominal pain, abdominal distension, nausea, vomiting, diarrhea, constipation, melena, hematochezia GENITOURINARY: Absent: dysuria, frequency, urgency, hesitancy, hematuria, flank pain, genital pain MUSCULOSKELETAL: Absent: myalgia, arthralgia, joint swelling, back pain, neck pain SKIN: Absent: rash, itching, pallor HEMATOLOGIC/IMMUNOLOGIC: Absent: easy bleeding, easy bruising, lymphadenopathy, frequent infections ENDOCRINE: Absent: unexplained weight gain, unexplained weight loss, heat intolerance, cold intolerance NEUROLOGIC: Absent: headache, focal weakness or paresthesias, dizziness, unsteady gait, seizure, mental status changes, bladder or bowel incontinence PSYCHIATRIC: Absent: anxiety, depression, suicidal or homicidal ideation, hallucinations. PHYSICAL EXAMINATION Vital Signs - 24 hr 05/04/18 05/04/18 05/04/18 07:11 07:34 11:22 Temperature 97.8 F 97.7 F Pulse Rate 62 66 Respiratory 18 14 Rate Blood Pressure 143/60 143/45 L O2 Sat by Pulse 98 98 Oximetry (%) 05/04/18 05/04/18 05/04/18 11:25 11:30 11:35 Temperature Pulse Rate 63 59 L 60 Respiratory 16 14 15 Rate Blood Pressure 132/83 121/58 L 118/67 O2 Sat by Pulse 100 100 100 Oximetry (%) 05/04/18 05/04/18 05/04/18 11:50 12:05 12:20 Temperature Pulse Rate 55 L 60 60 Respiratory 15 14 15 Rate Blood Pressure 140/58 L 134/65 132/68 O2 Sat by Pulse 100 100 100 Oximetry (%) 05/04/18 12:25 Temperature 97.7 F Pulse Rate 60 Respiratory 14 Rate Blood Pressure 134/65 O2 Sat by Pulse Oximetry (%) GENERAL: Awake, alert, and fully oriented, in no acute distress. HEAD: Normal with no signs of trauma. EYES: Pupils equal, round and reactive to light, extraocular movements intact, sclera anicteric, conjunctiva clear. No lid lag. EARS, NOSE, THROAT: Ears normal, nares patent, oropharynx clear without exudates. Moist mucous membranes. NECK: Normal range of motion, supple without lymphadenopathy, JVD, or masses. LUNGS: Breath sounds equal, clear to auscultation bilaterally. No wheezes, and no crackles. No accessory muscle use. HEART: Regular rate and rhythm, normal S1 and S2 without murmur, rub or gallop. ABDOMEN: Soft, nontender, not distended, normoactive bowel sounds, no guarding, no rebound, no masses. No hepatomegaly or splenomegaly. MUSCULOSKELETAL: Normal range of motion at all joints. No bony deformities or tenderness. No CVA tenderness. UPPER EXTREMITIES: 2+ pulses, warm, well-perfused. No cyanosis. No clubbing. No peripheral edema. LOWER EXTREMITIES: 2+ pulses, warm, well-perfused. No calf tenderness. No peripheral edema. NEUROLOGICAL: Cranial nerves II-XII intact. Normal speech. Normal gait. PSYCHIATRIC: Cooperative. Good eye contact. Appropriate mood and affect. SKIN: Warm, dry, normal turgor, no rashes or lesions noted, normal capillary refill. ASSESSMENT/PLAN:
[2018-05-04] MEDS ORDERED: SIMETHICONE 80 MG TAB.CHEW (FP) PO PRN (14:52)
[2018-05-04] MEDS: oxyCODONE HCL 5 MG TABLET PO PRN ×3 (15:26→21:25)
[2018-05-04] MEDS: CEFAZOLIN 2 GM/D5W 2 GM/50 ML ML IVPB SCH (18:40)
[2018-05-04] MEDS: ASPIRIN 81 MG CHEWABLE TABLETS PO SCH (21:24)
[2018-05-04] MEDS: SENNOSIDES/DOCUSATE COMBO (SENNA PLUS) TABLET (UD) PO SCH (21:25)
[2018-05-05] MEDS ORDERED: KETOROLAC TROMETHAMINE 30 MG/1 ML VIAL IVPUSH ONE (00:29)
[2018-05-05] MEDS: oxyCODONE HCL 5 MG TABLET PO PRN ×4 (00:33→22:09)
[2018-05-05] MEDS: ACETAMINOPHEN 325 MG TABLET (FP) PO SCH ×4 (02:17→20:56)
[2018-05-05] MEDS: CEFAZOLIN 2 GM/D5W 2 GM/50 ML ML IVPB SCH (02:18)
--- NOTE | 2018-05-05 07:09 | PN ---
Physical Exam: SUBJECTIVE: Patient seen and examined. Complains of incisional pain overnight that interfered with sleep - greatly improved with Toradol. Has not yet gotten out of bed. Abdominal discomfort has resolved. OBJECTIVE: Vital Signs Period Temp Pulse Resp BP Sys/Kraus Pulse Ox Last 24 Hr 97.7 F-98.6 F 55-93 14-19 91-148/42-83 95-100 GENERAL: The patient is awake, alert, and fully oriented, in no acute distress. HEAD: Normal with no signs of trauma. EYES: PERRL, extraocular movements intact, sclera anicteric, conjunctiva clear. No ptosis. ENT: Ears normal, nares patent, oropharynx clear without exudates, moist mucous membranes. NECK: Trachea midline, full range of motion, supple. LUNGS: Breath sounds equal, clear to auscultation bilaterally, no wheezes, no crackles, no accessory muscle use. HEART: Regular rate and rhythm, S1, S2 without murmur, rub or gallop. ABDOMEN: Soft, nontender, nondistended, normoactive bowel sounds, no guarding, no rebound, no hepatosplenomegaly, no masses. EXTREMITIES: 2+ pulses, warm, well-perfused. Left knee site clean and dry, drain in place, some edema. NEUROLOGICAL: Cranial nerves II through XII grossly intact. Normal speech, gait not observed. PSYCH: Normal mood, normal affect. SKIN: Warm, dry, normal turgor, no rashes or lesions noted Active Medications Generic Name Dose Route Start Last Admin Trade Name Freq PRN Reason Stop Dose Admin Acetaminophen 650 mg 05/04/18 14:00 05/05/18 02:17 Tylenol - PO 05/07/18 13:59 650 mg Q6H BHAVIN Administration Al Hydroxide/Mg Hydroxide 30 ml 05/04/18 10:16 05/04/18 15:26 Mylanta Oral Suspension - PO 30 ml Q4H PRN Administration DYSPEPSIA Aspirin 81 mg 05/04/18 22:00 05/04/18 21:24 Asa - PO 81 mg BID BHAVIN Administration Ferrous Sulfate 325 mg 05/05/18 10:00 Feosol - PO DAILY BHAVIN Magnesium Hydroxide 30 ml 05/04/18 10:16 Milk Of Magnesia - PO PRN PRN CONSTIPATION Ondansetron HCl 4 mg 05/04/18 10:16 Zofran Injection IVPUSH Q6H PRN NAUSEA Oxycodone HCl 5 mg 05/04/18 12:24 Roxicodone - PO Q3H PRN PAIN LEVEL 1-5 Oxycodone HCl 10 mg 05/04/18 12:24 05/05/18 06:59 Roxicodone - PO 10 mg Q3H PRN Administration PAIN LEVEL 6-10 Pantoprazole Sodium 40 mg 05/05/18 10:00 Protonix - PO DAILY [facility] Senna/Docusate Sodium 2 tablet 05/04/18 22:00 05/04/18 21:25 Pericolace - PO Not Given BID BHAVIN Simethicone 80 mg 05/04/18 14:52 05/04/18 15:26 Mylicon - PO 80 mg QID PRN Administration GAS Solifenacin 10 mg 05/05/18 10:00 Vesicare - PO DAILY [facility] ASSESSMENT/PLAN: 78 year-old female POD #1 s/p left TKR. Degenerative joint disease s/p LEFT TKR --POD #1 --will give Toradol 15mg prior to PT --Protonix --ASA 81mg BID, TEDs, IS for ppx --PT --Anticipate dc back to rehab Hypertension --Hold HCTZ while on IV fluids Mild abdominal pain --Resolved Visit type - Emergency Visit Emergency Visit: No - New Patient This patient is new to me today: Yes Date on this admission: 05/05/18 - Critical Care Critical Care patient: No - Discharge Referral Referred to [facility] Med [facility].C[facility] No
--- NOTE | 2018-05-05 07:57 | PN ---
Progress Note (short form) - Note Progress Note: POD #1 Alert. Sitting up in bed. hasn't been OOB yet. C/o incisional pain. Managed via IV and PO medication. Denies CP, palpitations or SOB. Last Vital Signs Temp Pulse Resp BP Pulse Ox 98.1 F 73 18 91/74 95 12//18 06:00 12/06/18 06:00 1218 06:00 05/05/18 06:00 05/05/18 06:00 Gen: nad, comfortable LLE: dressing c/d/i. ice pack in place. Drain 140mL (sanguinous) Problem List - Problems (1) Left knee DJD Assessment/Plan: POD #1 s/p Lt TKR - Pain control. -DVT PPx: -Chemical: ASA 81 mg po BID x 6 weeks -Mechanical: MARGARETH's, SCD's -Incentive Spirometry. -PT/OT/Rehab, OOB. -WBAT LLE -f/u drain output -f/u am labs. -Care per medical hospitalist team. -Discharge planning: f/u [facility] [place] office drone software development engineer for appointment: -Will follow. -Above plan discussed with my attendings and agrees Code(s): M17.12 - UNILATERAL PRIMARY OSTEOARTHRITIS, LEFT KNEE (2) Obese body habitus Code(s): E66.9 - OBESITY, UNSPECIFIED
[2018-05-05 08:33] LABS: ANION GAP 9 MMOL/L (8-16); BLOOD UREA NITROGEN 23 mg/dl (7-18); CALCIUM 8.5 mg/dl (8.4-10.2); CHLORIDE 101 mmol/L (98-107); CO2 25 mmol/L (22-28); CREATININE 0.7 mg/dl (0.6-1.3); GLUCOSE,RANDOM 114 mg/dl (74-106); POTASSIUM 4.2 mmol/L (3.5-5.1); SODIUM 135 mmol/L (136-145)
[2018-05-05 08:47] LABS: HEMATOCRIT 31.3 % (32.4-45.2); HEMOGLOBIN 9.9 GM/dl (10.7-15.3); MCH 20.9 pg (25.7-33.7); MCHC 31.8 g/dl (32.0-36.0); MEAN CELL VOLUME 65.6 fl (80-96); PLATELET COUNT 223 K/MM3 (134-434); RBC 4.77 M/mm3 (3.60-5.2); RDW 14.8 % (11.6-15.6); WHITE BLOOD COUNT 9.6 K/mm3 (4.0-10.8)
[2018-05-05] MEDS: SOLIFENACIN SUCCINATE 5 MG TAB (FP) PO SCH (09:30)
[2018-05-05] MEDS ORDERED: KETOROLAC TROMETHAMINE 15 MG/ML VIAL IVPUSH ONE (09:30)
[2018-05-05] MEDS: ASPIRIN 81 MG CHEWABLE TABLETS PO SCH ×2 (09:31→21:38)
[2018-05-05] MEDS: FERROUS SO4 325 MG TABLET (FP) PO SCH (09:31)
[2018-05-05] MEDS: PANTOPRAZOLE 40 MG TABLET (FP) PO SCH (09:31)
[2018-05-05] MEDS: SENNOSIDES/DOCUSATE COMBO (SENNA PLUS) TABLET (UD) PO SCH ×2 (09:32→21:37)
[2018-05-05] MEDS ORDERED: PANTOPRAZOLE 40 MG TABLET (FP) PO SCH (10:00)
[2018-05-05] MEDS ORDERED: HYDROCHLOROTHIAZIDE 12.5 MG CAPSULE (FP) PO SCH (10:00)
[2018-05-05] MEDS ORDERED: FAMOTIDINE 20 MG TABLET PO SCH (10:00)
[2018-05-05] MEDS ORDERED: IBUPROFEN 600 MG TABLET (FP) PO PRN (12:21)
--- NOTE | 2018-05-05 12:24 | PN ---
Progress Note, Physician Chief Complaint: s/p left knee arthroplasty post op day one. History of Present Illness: under spinal anesthesia and peripheral nerve block for post op pain - Current Medication List Current Medications: Active Medications Acetaminophen (Tylenol -) 650 mg PO Q6H [facility] Stop: 05/07/18 13:59 Last Admin: 05/05/18 09:00 Dose: 650 mg Al Hydroxide/Mg Hydroxide (Mylanta Oral Suspension -) 30 ml PO Q4H PRN PRN Reason: DYSPEPSIA Last Admin: 05/04/18 15:26 Dose: 30 ml Aspirin (Asa -) 81 mg PO BID [facility] Last Admin: 05/05/18 09:31 Dose: 81 mg Ferrous Sulfate (Feosol -) 325 mg PO DAILY [facility] Last Admin: 05/05/18 09:31 Dose: 325 mg Magnesium Hydroxide (Milk Of Magnesia -) 30 ml PO PRN PRN PRN Reason: CONSTIPATION Ondansetron HCl (Zofran Injection) 4 mg IVPUSH Q6H PRN PRN Reason: NAUSEA Oxycodone HCl (Roxicodone -) 5 mg PO Q3H PRN PRN Reason: PAIN LEVEL 1-5 Oxycodone HCl (Roxicodone -) 10 mg PO Q3H PRN PRN Reason: PAIN LEVEL 6-10 Last Admin: 05/05/18 11:21 Dose: 10 mg Pantoprazole Sodium (Protonix -) 40 mg PO DAILY [facility] Last Admin: 05/05/18 09:31 Dose: 40 mg Senna/Docusate Sodium (Pericolace -) 2 tablet PO BID [facility] Last Admin: 05/05/18 09:32 Dose: 2 tablet Simethicone (Mylicon -) 80 mg PO QID PRN PRN Reason: GAS Last Admin: 05/04/18 15:26 Dose: 80 mg Solifenacin (Vesicare -) 10 mg PO DAILY [facility] Last Admin: 05/05/18 09:30 Dose: 10 mg - Objective Vital Signs: Vital Signs Temperature 98.2 F 05/05/18 09:26 Pulse Rate 74 05/05/18 09:26 Respiratory Rate 18 05/05/18 09:26 Blood Pressure 135/60 05/05/18 09:26 O2 Sat by Pulse Oximetry (%) 95 05/05/18 07:56 Constitutional: Yes: Well Nourished Cardiovascular: Yes: WNL Respiratory: Yes: WNL Gastrointestinal: Yes: WNL Labs: CBC, BMP 05/05/18 08:10 05/05/18 08:10 Assessment/Plan Complaining of throbbing pain relieved with toradol last night. Will add motrin for pain otherwise no further intervention by the dept of anesthesia at this time. No adverse effects of anesthetic.
[2018-05-06] MEDS: ACETAMINOPHEN 325 MG TABLET (FP) PO SCH ×2 (04:00→09:42)
[2018-05-06] MEDS: oxyCODONE HCL 5 MG TABLET PO PRN ×2 (05:52→09:43)
[2018-05-06 08:26] LABS: HEMATOCRIT 28.3 % (32.4-45.2); HEMOGLOBIN 8.8 GM/dl (10.7-15.3); MCH 20.2 pg (25.7-33.7); MEAN CELL VOLUME 65.2 fl (80-96); MEAN PLT VOLUME 8.3 fl (7.5-11.1); PLATELET COUNT 206 K/MM3 (134-434); RBC 4.34 M/mm3 (3.60-5.2); RDW 14.8 % (11.6-15.6)
[2018-05-06] MEDS: ASPIRIN 81 MG CHEWABLE TABLETS PO SCH (09:44)
[2018-05-06] MEDS: SOLIFENACIN SUCCINATE 5 MG TAB (FP) PO SCH (09:44)
[2018-05-06] MEDS: FERROUS SO4 325 MG TABLET (FP) PO SCH (09:44)
[2018-05-06] MEDS: SENNOSIDES/DOCUSATE COMBO (SENNA PLUS) TABLET (UD) PO SCH (09:45)
[2018-05-06] MEDS: PANTOPRAZOLE 40 MG TABLET (FP) PO SCH (09:45)
[2018-05-06 09:47] VITALS: BP 152/77; PULSE 80; TEMP 98.9
--- NOTE | 2018-05-06 09:49 | DS ---
Physical Exam: SUBJECTIVE: Patient seen and examined OBJECTIVE: 78yo F s/p Left knee arthroplasty, pt states that her pain is controlled with pain meds. Denies fever, chills, n/v. Pt tolerating PO and is walking with PT. Vital Signs Temperature 99.8 F H 05/06/18 06:00 Pulse Rate 81 05/06/18 06:00 Respiratory Rate 20 05/06/18 06:00 Blood Pressure 115/54 L 05/06/18 06:00 O2 Sat by Pulse Oximetry (%) 94 L 05/06/18 07:56 PHYSICAL EXAM GENERAL: The patient is awake, alert, and fully oriented, in no acute distress. HEAD: Normal with no signs of trauma. EYES: PERRL, extraocular movements intact, sclera anicteric, conjunctiva clear. ENT: Ears normal, nares patent, oropharynx clear without exudates, moist mucous membranes. NECK: Trachea midline, full range of motion, supple. LUNGS: breathing comfortably no accessory muscle use. HEART: Regular rate and rhythm ABDOMEN: Soft, nontender, nondistended, normoactive bowel sounds, no guarding, no rebound, no hepatosplenomegaly, no masses. EXTREMITIES: 2+ pulses, warm, well-perfused, no edema. Left knee dressing intact , no drainage or erythema, drain removed at bedside. NEUROLOGICAL: Cranial nerves II through XII grossly intact. Normal speech, gait not observed. PSYCH: Normal mood, normal affect. SKIN: Warm, dry, normal turgor, no rashes or lesions noted. LABS CBC,CMP WBC 9.0 K/mm3 (4.0-10.8) 05/06/18 07:25 RBC 4.34 M/mm3 (3.60-5.2) 05/06/18 07:25 Hgb 8.8 GM/dl (10.7-15.3) L 05/06/18 07:25 Hct 28.3 % (32.4-45.2) L 05/06/18 07:25 MCV 65.2 fl (80-96) L 05/06/18 07:25 MCH 20.2 pg (25.7-33.7) L 05/06/18 07:25 MCHC 31.0 g/dl (32.0-36.0) L 05/06/18 07:25 RDW 14.8 % (11.6-15.6) 05/06/18 07:25 Plt Count 206 K/MM3 (134-434) 05/06/18 07:25 MPV 8.3 fl (7.5-11.1) 05/06/18 07:25 Sodium 135 mmol/L (136-145) L 05/05/18 08:10 Potassium 4.2 mmol/L (3.5-5.1) 05/05/18 08:10 Chloride 101 mmol/L (98-107) 05/05/18 08:10 Carbon Dioxide 25 mmol/L (22-28) 05/05/18 08:10 Anion Gap 9 MMOL/L (8-16) 05/05/18 08:10 BUN 23 mg/dl (7-18) H 05/05/18 08:10 Creatinine 0.7 mg/dl (0.6-1.3) 05/05/18 08:10 Creat Clearance w eGFR > 60 (>60) 05/05/18 08:10 Random Glucose 114 mg/dl (74-106) H 05/05/18 08:10 Calcium 8.5 mg/dl (8.4-10.2) 05/05/18 08:10 HOSPITAL COURSE: The patient was admitted to the Med-Surg Unit after an elective repair of their Left knee Now, s/p Left total knee arthroplasty. An xray was obtained in the OR and confirmed hardware placement in good position with no fractures or dislocations. The day of surgery, the patient ambulated the hallways with assistance. Narcotic and non-narcotic pain management control was achieved with an oral and IV approach. POD #2, the surgical drain was removed fully intact and without incident. Joyce-operative IV ABX were administered. DVT prophylaxis was achieved with SCDs and early ambulation. The patient ambulated with Physical Therapy and acute rehab was recommended. Transfer to an acute rehab facility was done. The discharge instructions and an oral pain management plan were reviewed with the patient. All questions answered. Above plan discussed with Dr. Tran and agreed. Date of Admission:05/04/18 Date of Discharge: 05/06/18 Minutes to complete discharge: 20 Visit type - Case Type Case Type: Scheduled - Emergency Emergency Visit: No - New patient This patient is new to me today: No Date on this admission: 05/04/18
--- NOTE | 2018-05-06 09:52 | DS ---
Physical Exam: Duplicate note Minutes to complete discharge: 0
--- NOTE | 2018-05-10 15:16 | PATH ---
Surgical Pathology Report Patient Name: MARSHA VALDES Med. Rec. #: [id number] /Age/Gender: 1940 (Age: 78) / F Account: [id number] Location: [facility] Taken: 05/04/2018 Received: 05/04/2018 Reported: 05/10/2018 Physicians: Fortino Tran M.D. Specimen(s) Received LEFT KNEE BONE Clinical History Left knee osteoarthritis Final Diagnosis BONE, LEFT KNEE, TOTAL KNEE REPLACEMENT: DEGENERATIVE JOINT DISEASE. Electronically Signed Veronica Adair M.D. Gross Description Received in formalin labeled "bone left knee," is a 13.0 x 10.5 x 2.8 cm aggregate of multiple portions of bone and soft tissue. The tibial plateau measures 8.2 x 6.2 x 1.9 cm. There is a 1.5 cm in greatest dimension area of eburnation present. The remaining articular surfaces are new-yellow and diffusely granular. The underlying trabecular bone is yellow and hard. Refined Syrup Operator sections are submitted in one cassette, following decalcification. 05/05/2018 [facility]05/05/2018
== END 2018-05-06 12:39 | DRG 470 ==
LOC: FM/S 06:39
PROVIDERS: ADMIT Orthopaedic Surgery Orthopaedic Surgery of the Spine; ATTEND Orthopaedic Surgery Orthopaedic Surgery of the Spine
PROC: 0SRD0J9 Replacement of Left Knee Joint with Synthetic Substitute, Cemented, Open Approach (ICD-10-PCS; principal; 2018-05-04 09:05)
DX: M17.12 Unilateral primary osteoarthritis, left knee (principal); I10 Essential (primary) hypertension; R10.9 Unspecified abdominal pain; E66.9 Obesity, unspecified; Z68.34 Body mass index [BMI] 34.0-34.9, adult
CPT/HCPCS: 36415; 73560-TC-LT-FY; 80048; 85027; 88304-TC; 88311-TC; 94760; 97116-GP; 97162-GP